=== PATIENT | female | born 1965 | race Caucasian/White ===

== ENCOUNTER 2017-11-06 13:47 | Emergency (ER) | payer OTHER, MEDICARE ==
[~2017-11-06] VITALS: Ht 162.6 cm; Wt 68.0 kg
--- NOTE | 2017-11-06 14:31 | ED EYE COMPLAINT ---
History of Present Illness General Chief Complaint: Eye Problems Stated Complaint: EYE PAIN AFTER BEING POKED IN EYE Source: patient Exam Limitations: no limitations Vital Signs & Intake/Output Vital Signs & Intake/Output Vital Signs Date Time Temp Pulse Resp B/P B/P Pulse O2 O2 Flow FiO2 Mean Ox Delivery Rate 11/06 1432 98.4 92 20 121/80 99 ED Intake and Output 11/07 0000 11/06 1200 Intake Total 0 Output Total Balance 0 Intake, Oral 0 Patient 150 lb Weight Weight Reported by Patient Measurement Method Allergies Coded Allergies: No Known Drug Allergies (Intermediate, NONE 11/06/17) Reconcile Medications Erythromycin Base (Erythromycin) 5 MG/GRAM (0.5 %) OINT...G. 1 DERICK OPH 4XDP corneal abrasion apply 1 cm ribbon into the lower conjunctival sac Triage Nurses Notes Reviewed? yes Onset: Abrupt Duration: day(s): Timing: recent history Injury Environment: home HPI: 52yo female with hx of congenital cataracts presents to ED complaining of pain in left eye after injury two days ago. Patient states she tripped and her brother tried to catch her however his finger hit her left eye. Patient fell to the ground however no head strike on the ground. Patient reports pain 6-7/10 currently. Patient usually uses dilating eye drops to see due to her congenital cataracts. She states since her injury she has not been using these drops, she cannot assess for visual changes without her drops because her vision is about 20/400 OU without her dilating drops and 20/40 OU with her drops. (Yumiko German) Past History Medical History Any Pertinent Medical History? see below for history EENT: cataracts Surgical History Surgical History: non-contributory Family History Hx Contributory? No (Yumiko German) Review of Systems Review of Systems Constitutional: Reports: no symptoms. Eyes: Reports: see HPI. Ear: Reports: no symptoms. Nose: Reports: no symptoms. Mouth: Reports: no symptoms. Throat: Reports: no symptoms. Respiratory: Reports: no symptoms. Cardiovascular: Reports: no symptoms. GI: Reports: no symptoms. Genitourinary: Reports: no symptoms. Musculoskeletal: Reports: no symptoms. Skin: Reports: no symptoms. Neurological/Psychological: Reports: no symptoms. Hematologic/Endocrine: Reports: no symptoms. Immunologic/Allergic: Reports: no symptoms. All Other Systems: Reviewed and Negative (Yumiko German) Physical Exam General Appearance: well developed/nourished, no apparent distress, alert, awake General Inspection: normal inspection Eyelid: normal inspection Conjunctiva/Sclera: injected Cornea: examined w/fluorescein, fluorescein dye uptake, small foreign body material removed from cornea with sterile qtip EOM: intact Pupil: normal accommodation, normal pupil, PERRL General Inspection: normal inspection Eyelid: normal inspection Conjunctiva/Sclera: normal inspection Cornea: normal inspection EOM: intact Pupil: dilated pupil Physical Exam Head: atraumatic, normal appearance Nose: normal inspection Mouth/Throat: normal mouth inspection Neck: normal inspection, supple, full range of motion Cardiovascular/Respiratory: no respiratory distress Neurologic/Psych: awake, alert, oriented x 3 Skin: intact, normal color, warm/dry (Yumiko German) Progress Differential Diagnosis: corneal abrasion, corneal foreign body, conjunctivitis, detached retina, globe rupture Plan of Care: There is small foreign material in patient's cornea which I removed with a sterile Q-tip. There is fluorescein uptake on cornea following removal, likely related to corneal abrasion. Patient has persistent pain in left eye since injury to eye 2 days ago. Sclera is injected. There is no teardrop sign or evidence of globe trauma on physical exam. Unable to accurately assess the patient's visual acuity as patient requires her dilating drops to see distance given her congenital cataracts. The patient states that she will call her eye doctor and make an appointment tomorrow, she prefers to see her eye doctor tomorrow for visual acuity testing rather than apply atropine drops here in the emergency department. This patient is reliable, she states she'll be able to be seen by an eye doctor within the next 24 hours. Given the likelihood of corneal abrasion the patient was started on erythromycin eye drops. The patient agrees with the plan of care. (Yumiko German) Departure Departure Disposition: HOME OR SELF CARE Condition: Stable Clinical Impression Primary Impression: Eye injury Qualifiers: Encounter type: initial encounter Laterality: left Qualified Code: S05.92XA - Unspecified injury of left eye and orbit, initial encounter Secondary Impressions: Corneal abrasion Qualifiers: Encounter type: initial encounter Laterality: left Qualified Code: S05.02XA - Injury of conjunctiva and corneal abrasion without foreign body, left eye, initial encounter Referrals: Patient Has No Primary Care Dr (PCP/Family) Additional Instructions: Begin erythromycin eye gel as prescribed. Follow-up with your eye doctor tomorrow. Return if any worsening symptoms or concerns. Please note that there might be incidental findings in your evaluation that are unrelated to the current emergency department visit. Please notify your primary care doctor about this emergency department visit in order to obtain and review all of the testing performed so that these incidental findings can be monitored as needed. If you had an x-ray performed, please understand that some fractures may not be seen on the initial set of x-rays. If your symptoms persist you might need a repeat set of x-rays to check for such a fracture. If you had a laceration evaluated, please understand that foreign bodies such as glass or wood may not be visible to the naked eye or on plain x-rays. If the wound becomes red, swollen, increasingly more painful or if there is any drainage from the wound, please have it reevaluated by a physician for the possibility of a retained foreign body. If you're unable to follow up as outlined in the discharge instructions please return to the emergency department. Thank you for choosing the [facility] Department for your care. It was a pleasure to serve you today. Departure Forms: Customer Survey General Discharge Information Prescriptions: Current Visit Scripts Erythromycin Base (Erythromycin) 1 DERICK OPH 4XDP #3.5 GM apply 1 cm ribbon into the lower conjunctival sac (Teresa WEN,Yumiko Prado) PA/COMMUNICATION ENGINEER Co-Sign Statement Statement: ED Attending supervision documentation- [] I saw and evaluated the patient. I have also reviewed all the pertinent lab results and diagnostic results. I agree with the findings and the plan of care as documented in the PA's/COMMUNICATION ENGINEER's documentation. [X] I have reviewed the ED Record and agree with the PA's/COMMUNICATION ENGINEER's documentation. [] Additions or exceptions (if any) to the PAs/COMMUNICATION ENGINEER's note and plan are summarized below: [] (Jose ASHBY,Cal Curtis)
[2017-11-06 14:32] VITALS: BP 121/80
[2017-11-06] MEDS ORDERED: ERYTHROMYCIN1 GM OPH (15:05)
== END 2017-11-06 15:19 ==
LOC: ERH 13:47
DX: S05.02XA Injury of conjunctiva and corneal abrasion without foreign body, left eye, initial encounter (principal); W22.8XXA Striking against or struck by other objects, initial encounter; Y92.9 Unspecified place or not applicable; Y93.9 Activity, unspecified